=== PATIENT | female | born 1965 | race Caucasian/White ===

== ENCOUNTER → 2018-01-18 | Outpatient (CLI) | payer BC ==
[2018-01-18 11:04] VITALS: BP 125/64; PULSE 64; TEMP 96.6; BMI 22.6
--- NOTE | 2018-01-18 11:53 | P.HPOB ---
History of Present Illness H&P Date: 01/18/18 Chief Complaint: The patient is here for her routine gynecologic exam and mammogram. This is a 52-year-old with an LMP of January 2017. During the past year she has been experiencing hot flashes that are mild to moderate, but not a significant problem. She is without gynecologic complaints and denies any vaginal bleeding for one full year. Review of Systems The patient has gained 5 pounds over the last 2 years. She denies respiratory, cardiac, or G.I. problems. 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 She had two vaginal deliveries and 1 molar . History of Any Multi-Drug Resistant Organisms: None Reported Additional Past Surgical History / Comment(s): D&C for a molar . Past Anesthesia/Blood Transfusion Reactions: No Reported Reaction Past Psychological History: No Psychological Hx Reported Smoking Status: Never smoker Past Alcohol Use History: Occasional (2 per week) Past Drug Use History: None Reported Additional History: She is and is not seeing anybody at this time. 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 - Past Family History Father Family Medical History: No Reported History Additional Family Medical History / Comment(s): A paternal grandmother and aunt had uterine cancer. Paternal grandfather had heart disease. Medications and Allergies Home Medications Medication Instructions Recorded Confirmed Type Calcium Carbonate [Calcium] mg PO DAILY 01/18/18 History Orange-3 Fatty Acids/Fish Oil [Fish cap PO DAILY 01/18/18 History Oil 1,000 mg Softgel] Vit B Complx C/Folic Acid/Zinc tab PO DAILY 01/18/18 History [Renaplex Tablet] Allergies Allergy/AdvReac Type Severity Reaction Status Date / Time Penicillins AdvReac Nausea & Unverified 01/18/18 10:59 Vomiting Exam Vital Signs Temp Pulse BP 01/18/18 10:59 96.6 F L 64 125/64 Intake and Output 01/17/18 01/18/18 01/18/18 22:59 06:59 14:59 Other: Weight 58.06 kg Height 5'3", BMI 22.7. This is a well-developed well-nourished white female who is alert and oriented times 3 in no acute distress. HEENT: Within normal limits. NECK: Supple without mass or thyromegaly. CHEST AND LUNGS: Clear to auscultation. HEART: Regular rate and rhythm. BREASTS: Are without mass or discharge. AXILLARY EXAM: Negative for adenopathy. BACK: Negative for CVA tenderness. ABDOMEN: Soft, nontender, without palpable masses. PELVIC EXAM: Normal external genitalia with minimal atrophy. Cervix and vagina appear normal minimal atrophy. There is no unusual discharge. There is no evidence of prolapse. The uterus is midposition, nongravid size and nontender. There are no palpable adnexal masses or tenderness. RECTAL EXAM: rectovaginal exam is negative for mass or tenderness and is negative for occult blood. EXTREMITIES: Nontender. IMPRESSION: 1. 52-year-old recently menopausal female with 12 months of amenorrhea and vasomotor symptoms. 2. Normal gynecologic exam. PLAN: 1. Pap smear was deferred since she had a normal one less than 2 years ago. 2. Self breast awareness was discussed. 3. She is due for a screening mammogram. She thought she was scheduled for a mammogram, but she was not on the schedule for today. We will see if this can be done today, and if not, she will schedule an appointment for this. 4. Osteoporosis prevention was discussed. 5. STD prevention was discussed. I have recommended that she used condoms if she is sexually active. 6. I have recommended screening colonoscopy based on her age. Dr. Barnhart's name and phone number will be given the patient for this. 7. She will return one year. 8. She was instructed to call if she has any vaginal bleeding since she is now considered menopausal.
--- NOTE | 2018-01-20 10:23 | MM ---
Reason for exam: screening (asymptomatic). Last mammogram was performed 1 year and 11 months ago. History: Patient is postmenopausal. Physical Findings: A clinical breast exam by your physician is recommended on an annual basis and results should be correlated with mammographic findings. MG Screening Mammo w CAD Bilateral CC and MLO view(s) were taken. Prior study comparison: February 17, 2016, bilateral MG screening mammo w CAD. May 01, 2009, bilateral diagnostic digital mammog. The breast tissue is heterogeneously dense. This may lower the sensitivity of mammography. Scattered benign punctate calcifications redemonstrated on the right. No significant changes when compared with prior studies. ASSESSMENT: Negative, BI-RAD 1 RECOMMENDATION: Routine screening mammogram of both breasts in 1 year. Patient should continue monthly self breast exam. A negative should not preclude additional follow up of suspicious palpable abnormality.
== END | disposition home or self-care (01) ==
LOC: WWCWWP 10:38
PROVIDERS: ATTEND Obstetrics & Gynecology
DX: Z12.31 Encounter for screening mammogram for malignant neoplasm of breast (principal)
CPT/HCPCS: 77067

== ENCOUNTER → 2020-12-10 | Outpatient (CLI) | payer BC ==
[2020-12-10 10:25] VITALS: BP 130/82; PULSE 60; RESP 16; TEMP 98
--- NOTE | 2020-12-10 11:16 | P.HPOB ---
History of Present Illness H&P Date: 12/10/20 Chief Complaint: The patient is here for her routine gynecologic exam. This is a 55-year-old with an LMP of 2017. The patient is without gynecologic complaints and denies any postmenopausal bleeding. She does have some hot flashes but they are improving and are not very bothersome. Review of Systems The patient's weight has been stable over the last year. She denies respiratory, cardiac, or G.I. problems. 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 She had two vaginal deliveries and 1 molar . History of Any Multi-Drug Resistant Organisms: None Reported Past Surgical History: No Surgical Hx Reported Additional Past Surgical History / Comment(s): D&C for a molar . Past Anesthesia/Blood Transfusion Reactions: No Reported Reaction Past Psychological History: No Psychological Hx Reported Smoking Status: Never smoker Past Alcohol Use History: Occasional (2 per week) Past Drug Use History: None Reported Additional History: She is and is not seeing anybody at this time. 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 - Past Family History Father Family Medical History: No Reported History Additional Family Medical History / Comment(s): Father has early Alzheimer's. A paternal grandmother and aunt had uterine cancer. Paternal grandfather had heart disease. Mother Additional Family Medical History / Comment(s): Aortic dissection. Medications and Allergies Home Medications Medication Instructions Recorded Confirmed Type Mantee-3 Fatty Acids/Fish Oil [Fish 1,000 mg PO DAILY 01/18/18 12/10/20 History Oil 1,000 mg Softgel] Cholecalciferol [Vitamin D3 (25 25 mcg PO DAILY 12/10/20 12/10/20 History Mcg = 1000 Iu)] Multivitamin [Multivitamins Adult 1 each PO 12/10/20 History Gummies] Allergies Allergy/AdvReac Type Severity Reaction Status Date / Time Penicillins AdvReac Nausea & Unverified 12/10/20 10:13 Vomiting Exam Vital Signs Temp Pulse Resp BP Pulse Ox 12/10/20 10:13 98.0 F 60 16 130/82 97 Intake and Output 12/09/20 12/10/20 12/10/20 22:59 06:59 14:59 Other: Weight 58.06 kg Height 5 feet 2 inches, weight 128 pounds, BMI 23.4. This is a well-developed well-nourished female who is alert and oriented times 3 in no acute distress. HEENT: Within normal limits. NECK: Supple without mass or thyromegaly. CHEST AND LUNGS: Clear to auscultation. HEART: Regular rate and rhythm. BREASTS: Are without mass or discharge. AXILLARY EXAM: Negative for adenopathy. BACK: Negative for CVA tenderness. ABDOMEN: Soft, nontender, without palpable masses. PELVIC EXAM: Normal external genitalia. Cervix and vagina appear normal with minimal atrophy. There is no unusual discharge. There is no evidence of prolapse. The uterus is midposition, nongravid size and nontender. There are no palpable adnexal masses or tenderness. RECTAL EXAM: Rectovaginal exam is negative for mass or tenderness and is negative for occult blood. EXTREMITIES: Nontender. IMPRESSION: 1. 55-year-old menopausal female with normal gynecologic exam. 2. Mild vasomotor symptoms related to the menopausal change. PLAN: 1. Pap smear cotest was performed. 2. Self breast awareness was discussed with the patient. 3. Screening mammogram is due and the order slip was given to the patient for this. 4. Osteoporosis prevention was discussed. I have stressed the importance of adequate calcium, vitamin D and regular exercise. Recommended amounts of calcium and vitamin D were also discussed. 5. I have recommended screening colonoscopy based on her age. She will follow- up with Dr. Ocampo's office to see if this can be arranged. 6. She was advised to return in one year for her annual well woman exam.
== END ==
LOC: WWCWWP 09:54
PROVIDERS: ATTEND Obstetrics & Gynecology
DX: Z01.419 Encounter for gynecological examination (general) (routine) without abnormal findings (principal); Z78.0 Asymptomatic menopausal state; Z88.0 Allergy status to penicillin

== ENCOUNTER 2024-12-27 07:10 | Day surgery (SDC) | payer BC ==
[2024-12-25 09:37] VITALS: BMI 23.8
[~2024-12-27 07:10] MED LIST: LACTATED RINGERS 1,000 ML IV SCH; LIDOCAINE 1% (10MG/ML) FOR IV START INTRADERMA PRN
[2024-12-27] MEDS: IV FLUID CONTINUATION 1,000 ML IV ONE (07:43)
--- NOTE | 2024-12-27 07:48 | P.GSHP ---
History of Present Illness H&P Date: 12/27/24 CHIEF COMPLAINT: Colon screen HISTORY OF PRESENT ILLNESS: The patient is a 59 year-old female who presents for colon screen. Lower endoscopy was offered for further evaluation and management. PAST MEDICAL HISTORY: Please see list. PAST SURGICAL HISTORY: Please see list. MEDICATIONS: Please see list. ALLERGIES: Please see list. SOCIAL HISTORY: No illicit drug use FAMILY HISTORY: No reports of Crohn disease or ulcerative colitis. REVIEW OF ORGAN SYSTEMS: CONSTITUTIONAL: No reports of fevers or chills. PHYSICAL EXAM: VITAL SIGNS: Stable GENERAL: Well-developed pleasant in no acute distress. HEENT: No scleral icterus. Extraocular movements grossly intact. Moist buccal mucosa. NECK: Supple without lymphadenopathy. CHEST: Unlabored respirations. Equal bilateral excursions. CARDIOVASCULAR: Regular rate and rhythm. Distal 2+ pulses. ABDOMEN: Soft, nontender, nondistended. MUSCULOSKELETAL: No clubbing, cyanosis, or edema. ASSESSMENT: 1. Colon screen. PLAN: 1. Recommend proceeding with a lower endoscopy Past Medical History Past Medical History: No Reported History Additional Past Medical History / Comment(s): She had two vaginal deliveries and 1 molar . History of Any Multi-Drug Resistant Organisms: None Reported Past Surgical History: No Surgical Hx Reported Additional Past Surgical History / Comment(s): D&C for a molar . Pilonidal cyst removal from back at age 16 Past Anesthesia/Blood Transfusion Reactions: No Reported Reaction Additional Past Anesthesia/Blood Transfusion Reaction / Comment(s): No hx of blood transfusion Smoking Status: Never smoker - Past Family History Father Family Medical History: No Reported History Additional Family Medical History / Comment(s): Father has early Alzheimer's. A paternal grandmother and aunt had uterine cancer. Paternal grandfather had heart disease. Mother Additional Family Medical History / Comment(s): Aortic dissection. Medications and Allergies Home Medications Medication Instructions Recorded Confirmed Type Vitamin B Patch 1 patch TOPICAL DAILY 12/25/24 12/25/24 History Vitamin D Patch 1 patch TOPICAL DAILY 12/25/24 12/25/24 History Allergies Allergy/AdvReac Type Severity Reaction Status Date / Time Sulfa (Sulfonamide Allergy Unknown Verified 12/25/24 09:38 Antibiotics) Penicillins AdvReac Nausea & Verified 12/25/24 09:38 Vomiting
[2024-12-27 07:50] VITALS: RESP 16; TEMP 96.8
[2024-12-27] MEDS ORDERED: PROPOFOL 10 MG/ML 20 ML VIAL IV ONE (08:18)
--- NOTE | 2024-12-27 08:37 | P.PCN ---
Date of Procedure: 12/27/24 Description of Procedure: PREOPERATIVE DIAGNOSIS: Family history of colon polyps Colonoscopy screening. POSTOPERATIVE DIAGNOSIS: Colonoscopy screening. OPERATION: Colonoscopy to the cecum, ileocecal valve and appendiceal orifice. SURGEON: Irma Vera MD. ANESTHESIA: MAC. INDICATIONS: The patient is a 59-year-old female who presents for colonoscopy screening. Last colonoscopy 5 years ago. Patient has high risk familial history of colon polyps. Benefits and risks were described and informed consent was obtained. DESCRIPTION OF PROCEDURE: The patient had undergone Suprep. The patient had been brought into the operating room and laid in the left lateral decubitus position. After adequate intravenous sedation, the rectum was examined with 2% lidocaine jelly. No external hemorrhoids were encountered. The rectal tone was within normal limits. No lesions were palpated in the rectal vault. An Olympus colonoscope was advanced until the cecum, ileocecal valve and appendiceal orifice were clearly viewed. The prep was excellent. No scattered diverticulosis was encountered. No colonic polyps were found. No evidence of focal colitis was found. Retroflexion of the scope demonstrated grade 1 internal hemorrhoids without active bleeding or inflammation. The colon was desufflated. The patient had tolerated the procedure well. Withdrawal time was over 6 minutes. FINDINGS: Aronchick preparation quality scale 1 (1-5) Internal hemorrhoids, grade 1 No external prolapsed hemorrhoids. No arteriovenous malformations. No adenomatous polyps. No focal colitis. RECOMMENDATIONS: Lower endoscopy 2029 Plan - Discharge Summary Discharge Rx Participant: No New Discharge Prescriptions: Continue Vitamin B Patch 1 patch TOPICAL DAILY Vitamin D Patch 1 patch TOPICAL DAILY Discharge Medication List Vitamin B Patch 1 patch TOPICAL DAILY 12/25/24 [History] Vitamin D Patch 1 patch TOPICAL DAILY 12/25/24 [History] Follow up Appointment(s)/Referral(s): Irma Vera MD [STAFF PHYSICIAN] - As Needed Patient Instructions/Handouts: Moderate Sedation (DC) Activity/Diet/Wound Care/Special Instructions: Repeat colonoscopy 2029 Discharge Disposition: HOME SELF-CARE
[2024-12-27 08:51] VITALS: BP 100/62; PULSE 54
== END 2024-12-27 09:16 | disposition home or self-care (01) ==
LOC: ORWHC2ENDO 07:10
PROVIDERS: ATTEND Surgery Plastic and Reconstructive Surgery
DX: Z12.11 Encounter for screening for malignant neoplasm of colon (principal); K64.0 First degree hemorrhoids; F17.200 Nicotine dependence, unspecified, uncomplicated; Z87.59 Personal history of other complications of pregnancy, childbirth and the puerperium; Z83.719 Family history of colon polyps, unspecified; Z82.49 Family history of ischemic heart disease and other diseases of the circulatory system; Z88.2 Allergy status to sulfonamides; Z88.1 Allergy status to other antibiotic agents; Z88.0 Allergy status to penicillin; Z79.899 Other long term (current) drug therapy
CPT/HCPCS: 45378; J2704